=== PATIENT | female | born 1990 | race American Indian/Alaskan Native ===

== ENCOUNTER 2021-12-29 05:22 | Emergency (ER) | payer MEDICARE ==
[2021-12-29] MEDS ORDERED: fentaNYL 100 MCG/2 ML INJ IM ONE (06:37)
[2021-12-29] MEDS ORDERED: ONDANSETRON 4 MG/2 ML INJ IM ONE (06:37)
--- NOTE | 2021-12-29 06:41 | Emergency Department Report ---
HPI - General Chief Complaint: Abdominal Pain Time Seen by Provider: 12/29/21 06:29 - HPI HPI: Room 25 The patient is a 31-year-old female present with a chief complaint of abdominal pain. Patient states for 1 days she has had epigastric and left upper quadrant pain consistent with her previous Crohn's flares. Patient describes the pain as sharp and aching in nature associate with nausea vomiting and diarrhea. Patient denies history of fever. Patient states she was on antibiotics approximately 3 weeks ago for hidradenitis. Patient is not driving. Patient currently gives her abdominal pain a score of 9/10 ED Past Medical Hx - Past Medical History Previous Medical History?: Yes Additional medical history: PUD. Crohns Disease - Surgical History Past Surgical History?: Yes Additional Surgical History: Back - Family History Family history: no significant - Social History Smoking Status: Current Every Day Smoker (1/2 pack/day) Substance Use Type: None (Denies illicit drug use) - Medications Home Medications: Home Medications Medication Instructions Recorded Confirmed Last Taken Type Fluconazole [Diflucan TAB] 200 mg PO QDAY #1 tablet 12/29/21 Unknown Rx HYDROcodone/APAP 5-325 [[place] 1 - 2 each PO Q6HR PRN #14 tablet 12/29/21 Unknown Rx 5/325] Promethazine [Phenergan] 25 mg PO Q6HR PRN #20 tab 12/29/21 Unknown Rx Promethazine [Phenergan] 25 mg NM Q6HR PRN #5 supp.rect 12/29/21 Unknown Rx ED Review of Systems ROS: Stated complaint: ABDOMINAL PAIN Other details as noted in HPI Constitutional: denies: fever Eyes: denies: eye pain ENT: denies: throat pain Respiratory: no symptoms reported Cardiovascular: denies: chest pain Endocrine: no symptoms reported Gastrointestinal: abdominal pain, nausea, vomiting, diarrhea Genitourinary: denies: dysuria Musculoskeletal: back pain Neurological: denies: headache Physical Exam - Physical Exam Vital Signs: Vital Signs 12/29/21 05:22 Temperature 98 F Pulse Rate 78 Respiratory 18 Rate Blood Pressure 120/67 O2 Sat by Pulse 100 Oximetry Physical Exam: GENERAL: The patient is well-developed well-nourished female lying on stretcher appearing to be in moderate. [] HEENT: Normocephalic. Atraumatic. Extraocular motions are intact. Patient has moist mucous membranes. NECK: Supple. Trachea midline CHEST/LUNGS: Clear to auscultation. There is no respiratory distress noted. HEART/CARDIOVASCULAR: Regular. There is no tachycardia. There is no gallop rub or murmur. ABDOMEN: Abdomen is soft, but complains of pain in the epigastric region. No rebound or guarding. Patient has normal bowel sounds. There is no abdominal distention. SKIN: There is no rash. There is no edema. There is no diaphoresis. NEURO: The patient is awake, alert, and oriented. The patient is cooperative. The patient has no focal neurologic deficits. The patient has normal speech. GCS 15 MUSCULOSKELETAL: There is no evidence of acute injury. ED Course Vital Signs 12/29/21 05:22 Temperature 98 F Pulse Rate 78 Respiratory 18 Rate Blood Pressure 120/67 O2 Sat by Pulse 100 Oximetry ED Medical Decision Making - Lab Data Result diagrams: 12/29/21 06:55 12/29/21 06:55 - Radiology Data Radiology results: report reviewed (CT abdomen pelvis), image reviewed (CT abdomen pelvis) [address] [address] Cat Scan Report Signed Patient: COLIN GOODWIN R#: [id number] : 1990 Acct:[id number] Age/Sex: 31 / F ADM Date: 12/29/21 Loc: ED Attending Dr: Ordering Physician: RAUL PIERSON MD Date of Service: 12/29/21 Procedure(s): CT abdomen pelvis wo con Accession Number(s): [id number] cc: RAUL PIERSON MD CT ABDOMEN AND PELVIS WITHOUT CONTRAST INDICATION / CLINICAL INFORMATION: Epigastric/LUQ pain. History of Crohn's. TECHNIQUE: Axial CT images were obtained through the abdomen and pelvis without IV contrast. All CT scans at this location are performed using CT dose reduction for ALARA by means of automated exposure control. COMPARISON: None available. FINDINGS: LOWER CHEST: No significant abnormality LIVER: No significant abnormality GALLBLADDER/BILIARY TREE: No significant abnormality PANCREAS: No significant abnormality SPLEEN: No significant abnormality ADRENALS: No significant abnormality RIGHT KIDNEY / URETER: Punctate nonobstructive right renal stone. No urolithiasis or hydronephrosis. LEFT KIDNEY / URETER: No significant abnormality URINARY BLADDER: No significant abnormality REPRODUCTIVE ORGANS: No significant abnormality STOMACH / BOWEL: Small bowel is normal in caliber. Colon is also decompressed. There is no evidence of localized bowel inflammation or obstruction. Normal appendix. LYMPH NODES: No significant adenopathy. VASCULATURE: No significant abnormality. OTHER: No free air, free fluid, or focal fluid collection is identified. SKELETAL SYSTEM: No acute osseous findings. IMPRESSION: 1. No acute abnormality of the abdomen or pelvis. No evidence of localized bowel inflammation or obstruction. 2. Punctate nonobstructive right renal stone. No urolithiasis or hydr onephrosis. Signer Name: Oscar Borja MD Signed: 12/29/2021 8:35 AM Workstation Name: [id number] Transcribed By: JS Dictated By: OSCAR BORJA MD Electronically Authenticated By: OSCAR BORJA MD Signed Date/Time: 12/29/21834 DD/ 9 TD/TT: - Differential Diagnosis Crohn's flare, gastroenteritis, peptic ulcer disease Critical care attestation.: If time is entered above; I have spent that time in minutes in the direct care of this critically ill patient, excluding procedure time. ED Disposition Clinical Impression: Acute abdominal pain, Candiduria Disposition: 01 HOME / SELF CARE / HOMELESS Is pt being admited?: No Does the pt Need Aspirin: No Condition: Stable Instructions: Abdominal Pain (ED), Abdominal Pain, Adult Additional Instructions: Return to the emergency department should you develop worsening symptoms, inability to tolerate food or liquids, high fever or any other concerns Prescriptions: Fluconazole [Diflucan TAB] 200 mg PO QDAY #1 tablet HYDROcodone/APAP 5-325 [[place] 5/325] 1 - 2 each PO Q6HR PRN #14 tablet PRN Reason: Pain Promethazine [Phenergan] 25 mg PO Q6HR PRN #20 tab PRN Reason: Nausea Promethazine [Phenergan] 25 mg NM Q6HR PRN #5 supp.rect PRN Reason: Vomiting 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
[2021-12-29 07:14] LABS: Basophils % (Auto) 0.2 % (0.0-1.8); Hematocrit 43.6 % (30.3-42.9); Hemoglobin 14.3 gm/dl (10.1-14.3); Lymphocytes # (Auto) 2.3 K/mm3 (1.2-5.4); Lymphocytes % (Auto) 17.1 % (13.4-35.0); Mean Corpuscular HGB Conc 33 % (30-34); Mean Corpuscular Volume 90 fl (79-97); Monocytes % (Auto) 7.4 % (0.0-7.3); Platelet Count 371 K/mm3 (140-440); Red Blood Count 4.87 M/mm3 (3.65-5.03); Red Cell Distribution Width 15.6 % (13.2-15.2)
[2021-12-29 07:55] LABS: Alanine Aminotransferase 14 units/L (7-56); Albumin 5.3 g/dL (3.9-5); Blood Urea Nitrogen 17 mg/dL (7-17); Hemolysis Index 2
[2021-12-29 08:11] LABS: BUN/Creatinine Ratio 24
[2021-12-29] MEDS ORDERED: HYDROmorphone 1 MG/1 ML INJ IM ONE ×2 (08:38→10:54)
[2021-12-29] MEDS ORDERED: methylPREDNISolone Sod Succinate 125 MG/2 ML INJ IM ONE (08:38)
--- NOTE | 2021-12-29 08:39 | Cat Scan Report ---
CT ABDOMEN AND PELVIS WITHOUT CONTRAST INDICATION / CLINICAL INFORMATION: Epigastric/LUQ pain. History of Crohn's. TECHNIQUE: Axial CT images were obtained through the abdomen and pelvis without IV contrast. All CT scans at this location are performed using CT dose reduction for ALARA by means of automated exposure control. COMPARISON: None available. FINDINGS: LOWER CHEST: No significant abnormality LIVER: No significant abnormality GALLBLADDER/BILIARY TREE: No significant abnormality PANCREAS: No significant abnormality SPLEEN: No significant abnormality ADRENALS: No significant abnormality RIGHT KIDNEY / URETER: Punctate nonobstructive right renal stone. No urolithiasis or hydronephrosis. LEFT KIDNEY / URETER: No significant abnormality URINARY BLADDER: No significant abnormality REPRODUCTIVE ORGANS: No significant abnormality STOMACH / BOWEL: Small bowel is normal in caliber. Colon is also decompressed. There is no evidence o f localized bowel inflammation or obstruction. Normal appendix. LYMPH NODES: No significant adenopathy. VASCULATURE: No significant abnormality. OTHER: No free air, free fluid, or focal fluid collection is identified. SKELETAL SYSTEM: No acute osseous findings. IMPRESSION: 1. No acute abnormality of the abdomen or pelvis. No evidence of localized bowel inflammation or obst ruction. 2. Punctate nonobstructive right renal stone. No urolithiasis or hydronephrosis. Signer Name: Andry Mcdermott MD Signed: 12/29/2021 8:35 AM Workstation Name: [id number]
[2021-12-29 09:47] LABS: Bacteria,Urine 4+ /HPF (Negative)
[2021-12-29 10:06] LABS: RBC,Urine > 182.0 /HPF (0.0-6.0)
[2021-12-29 10:21] LABS: Bilirubin,Urine Negative (Negative); Color,Urine Amber (Yellow)
[2021-12-29 10:22] LABS: Blood,Urine Large (Negative)
[2021-12-29 10:53] LABS: WBC,Urine < 1.0 /HPF (0.0-6.0)
[2021-12-29] MEDS ORDERED: diphenhydrAMINE 50 MG/ML VIAL IM ONE (10:54)
[2021-12-29 11:19] VITALS: BP 125/62
== END 2021-12-29 12:18 | disposition home or self-care (01) ==
LOC: ED 05:22
DX: R10.9 Unspecified abdominal pain (principal); B37.41 Candidal cystitis and urethritis; F17.200 Nicotine dependence, unspecified, uncomplicated
CPT/HCPCS: 36415; 74176; 80053; 81001; 83690; 84703; 85025; 96372; 99284; J1170; J1200; J2405; J2930; J3010